=== PATIENT | female | born 1945 | race Caucasian/White ===

== ENCOUNTER → 2017-12-23 07:27 | Outpatient (CLI) | payer MEDICARE, OTHER, SELFPAY ==
[2017-12-23 11:08] LABS: ALB/GLOB Ratio 1.1 RATIO (0.9-2.4); AST(SGOT) 10 U/L (15-37); Alanine Aminotransfer ALT/SGPT 22 U/L (13-56); Albumin, Serum 3.2 g/dL (3.2-5.0); Alkaline Phosphatase 52 U/L (45-117); BUN 18 mg/dL (7-18); Calcium,Total 8.3 mg/dL (8.5-10.1); Chloride 105 mmol/L (98-107); Cholesterol 262 mg/dL (200); Creatinine, Serum 0.78 mg/dL (0.55-1.02); EST Glomerular Filtration Rate 77 mL/min (>60); Est Glom Filt Rate - Afr Amer 93 mL/min (>60); Globulin 2.9 g/dL (2.2-4.2); Glucose 160 mg/dL (74-106); Potassium 4.4 mmol/L (3.5-5.1); Protein, Total 6.1 g/dL (6.4-8.2); Sodium Level 141 mmol/L (136-145); Triglycerides 148 mg/dL
[2017-12-23 11:09] LABS: Anion Gap 10 (5-15); High Density Lipoprotein 48 mg/dL; Thyroid Stim Hormone (TSH) 0.84 uIU/mL (0.358-3.74); Very Low Density Lipoprotein 30 mg/dL (5-40)
== END ==
PROVIDERS: Family Provider Family Medicine; PCP Family Medicine; Visit Provider Family Medicine
DX: E11.9 Type 2 diabetes mellitus without complications (principal); E03.9 Hypothyroidism, unspecified
CPT/HCPCS: 36415; 80053; 80061; 84443

== ENCOUNTER → 2018-07-24 | Outpatient (CLI) | payer MEDICARE, OTHER, SELFPAY ==
[2018-06-18 11:12] VITALS: BP 134/67; PULSE 90; RESP 16; TEMP 37.1; O2SAT 97; BMI 36.6
--- NOTE | 2018-06-18 11:34 | SDCEKG_ITS ---
Test Reason : Blood Pressure : / mmHG Vent. Rate : 085 BPM Atrial Rate : 085 BPM P-R Int : 154 ms QRS Dur : 072 ms QT Int : 356 ms P-R-T Axes : 015 023 033 degrees QTc Int : 423 ms Normal sinus rhythm Normal ECG Confirmed by DOTTIE JOHNSON, HAWA ([id number]), medical editor MICHAEL ANDRADE ([id number] on 06/20/2018 10:11:35 AM Referred By: Chris Khalil Confirmed By:HAWA SINCLAIR MD
--- NOTE | 2018-06-18 12:04 | RAD_ITS ---
STUDY: X-RAY CHEST REASON FOR EXAM: Female, 72 years old. Preoperative evaluation. TECHNIQUE: PA and lateral views of the chest. COMPARISON: None. FINDINGS: The lungs are clear and expanded. There is no demonstrated pleural abnormality. Normal size heart. Normal mediastinum and tommie. Normal visualized pulmonary arteries. There is atherosclerotic calcification of the aortic arch with tortuosity. There are degenerative changes of the visualized thoracic spine. Normal visualized ribs, clavicles, and shoulders. There is no demonstrated abnormality of the visualized soft tissue structures of the upper abdomen. RAD/Chest PA and Lateral IMPRESSION: Normal x-ray examination of the chest. Electronically Signed: Dar Velazquez MD at 12:58 EST Tel [phone], Service support ,
[2018-06-18 12:10] LABS: Absolute Lymphocyte Count 0.92 X10^3/ul (0.83-4.51); Absolute Neutrophil Count 4.5 X10^3/uL (2.0-7.7); Basophil# 0.03 X10^3/uL; Basophil% 0.5 % (0-1); Eosinophil# 0.06 X10^3/uL; Hematocrit 39.8 % (37-47); Hemoglobin 13.4 g/dl (12.0-15.0); Lymphocyte # 0.92 X10^3/ul (4.0); Lymphocyte % 15.4 % (19-41); Mean Corp Hgb Conc 33.7 g/gl (32-36); Mean Corpuscular Hgb 32.1 pg (27.0-32.0); Mean Corpuscular Volume 95.2 fL (81-99); Mean Platelet Vol. 10.2 fl (6.2-12.0); Monocyte# 0.47 X10^3/uL; Monocyte% 7.9 % (0-10); Neutrophil # 4.48 X10^3/uL (2.7-7.7); Neutrophil % 74.9 % (47-70); Platelet Count 253 K/mm3 (150-450); RBC Distribution Width CV 12.1 % (11.6-14.6); RBC Distribution Width SD 41.3 fl (35.1-43.9); Red Blood Count 4.18 M/mm3 (4.2-5.4)
[2018-06-18 12:11] LABS: POSITIVE COUNT NO; POSITIVE DIFFERENTIAL NO; POSITIVE MORPHOLOGY NO
[2018-06-18 12:31] LABS: Hemoglobin A1c 8.7 % (4.2-6.3)
[2018-06-18 12:47] LABS: Anion Gap 10 (5-15); BUN 19 mg/dL (7-18); BUN/Creat Ratio 17.6 RATIO (10-20); Calcium,Total 8.6 mg/dL (8.5-10.1); Chloride 101 mmol/L (98-107); Creatinine, Serum 1.08 mg/dL (0.55-1.02); EST Glomerular Filtration Rate 53 mL/min (>60); Est Glom Filt Rate - Afr Amer 64 mL/min (>60); Estimated Creatinine Clearance 35.53 ml/min; Glucose 393 mg/dL (74-106); Potassium 4.8 mmol/L (3.5-5.1); Sodium Level 137 mmol/L (136-145); Thyroid Stim Hormone (TSH) 0.71 uIU/mL (0.358-3.74)
--- NOTE | 2018-06-18 22:54 | HP.PCM_ITS ---
History and Physical DATE OF SURGERY: 07/02/2018 SCHEDULED PROCEDURE: Left Total Knee Arthroplasty HISTORY OF PRESENT ILLNESS: This is a 72-year-old female who has had ongoing pain in her left knee for approximately 5 years. She states the pain has progressively become worse. Pain can reach as high as an 8/10. Pain is intermittent, aching, and sharp. She has increased pain going up and down stairs, walking any amount of distance. She does report clicking in both knees. Pain is located over the medial joint line. She does complain of pain bilaterally. She has difficult time with activities of daily living including shopping due to the walking. Pain does occasionally wake her at night and is positional. Patient has tried conservative measures consisting of rest, elevation, and weight loss with minimal relief. She states she has lost 10 pounds. Patient has tried heat and previous corticosteroid injection with no relief in symptoms. Corticosteroid injection was given by her primary care physician. Patient has tried home exercises with no relief in symptoms. She has tried oral medications consisting of Advil with no relief in symptoms. Patient denies previous surgery on the left knee. Patient reports having a previous Euflexxa injection with no relief in symptoms. This was done at her primary care's office approximately 4 years ago. She has tried using a knee sleeve with no relief in symptoms. Patient currently denies any chest pain, shortness of breath, fevers chills, recent infections. We are obtaining surgical clearance from patient's primary care physician. Patient states she has had an A1c testing in April which was 7.6. Patient has a medical history pertinent for hypertension and type 2 diabetes mellitus. Patient also has previous history of non-Hodgkin's lymphoma in 2002. After failing conservative measures and discussing all treatment options with Dr. Chris Khalil, the patient would like to proceed with a left total knee arthroplasty. REVIEW OF SYSTEMS: ROS: Const: Denies change in appetite, fever and weight change. CV: Denies chest pain, heart murmur and irregular heartbeat. Resp: Denies cough, pneumonia, shortness of breath, tuberculosis and wheezing. GI: Denies constipation, diarrhea, heartburn, nausea, rectal itching, bloody stools and vomiting. : Denies incontinence. Musculo: Reports pain and trouble walking, but denies leg swelling and weakness. Skin: Denies Raynaud's, history of shingles and tattoo. Neuro: Denies ambulatory dysfunction, dizziness, numbness/tingling and tremor. Psych: Denies anxiety, insomnia and stress. Oscar/Lymph: Denies anemia, bleeding/bruising tendency and past transfusion. Reviewed and updated. PAST MEDICAL HISTORY: Advance Care Plan: Other Directive, LIVING WILL Effective Date: 05/05/2018 Other Directive, POA Effective Date: 05/05/2018 PMH: Medical Problems: Arthritis, Diabetes, High Blood Pressure Cancer - (2002) NON HODGKINS LYMPHOMA Accidents: None Surgical Hx: Tubal Ligation - (1980) [facility] Thyroid - (1962) [facility] [place] Anesthesia Complications: None Assistive Devices: Glasses - READING Reviewed and updated. SOCIAL HISTORY: SH: Marital: .Occupation: Retired.Work Status: Retired.Hand Dominance: Right- handed. Personal Habits: Cigarette Use: Never Smoked Cigarettes.Smokeless Tobacco: Never Used Smokeless Tobacco.Alcohol: Denies use.Drug Use: Denies Use.Enjoy Exercising: Not Regular Program - WORK [employer]ARD WORK. Reviewed, no changes. VITALS: Ht: 61 Wt: 190lb Wt k.184 BMI: 35.9 BP: 162/68 T: 97.9 T: 36.6C ALLERGIES: Sulfa MEDICATIONS: Aspir-81 81 mg 1po qday, Kombiglyze XR 5-1000 mg 1po qday, Glipizide ER 10 mg 1po qday, Metoprolol Succinate ER 25 mg 1po qday, Metoprolol Succinate ER 50 mg 1po qday, [place] Thyroid 60 mg 1po qday, Ramipril 10 mg 2 cap by mouth every night at bedtime PRE-OP EXAM: General appearance:NORMAL Other: Eyes: Conjunctivae and lids: NORMAL Pupils: ERR Ears, Nose, Mouth, and Throat: NORMAL Other: Inspection of lips, teeth and gums: NORMAL Other: Neck: Examination of neck: no masses noted. Respiratory: Assessment of respiratory effort: NORMAL Other: Auscultation of lungs: clear to auscultation no wheezes, rhonchi or rales. Cardiovascular: Auscultation of heart: regular rate and rhythm, positive systo lic murmurs, no gallops or rubs. Exam of carotid arteries: NORMAL Other: Gastrointestinal: Exam of abdomen: soft, nontender, nondistended bowel sounds present. PHYSICAL EXAMINATION: Patient does walk with an antalgic gait. Left knee is cool to touch without erythema. Tenderness to palpation of the medial joint line. Patient does have positive effusion. Patient has varus deformity. Range of motion left knee: Lacks 15 of full extension to 95 flexion. Patient does have partial correctable varus alignment. Stable to varus valgus stress test, negative anterior/posterior drawer. Sensation intact to light touch. Neurovascularly intact. IMAGING STUDIES: X-rays of bilateral knees reveal right knee with varus alignment and medial joint space narrowing with subchondral sclerosis and osteophyte formation consistent with severe osteoarthritis. Left knee reveals varus alignment with medial joint space narrowing, subchondral sclerosis, osteophyte formation consistent with severe osteoarthritis. Most significantly in the left knee there are large posterior osteophytes with bony erosion of the medial tibial condyle. IMPRESSION: 1. Severe left knee osteoarthritis 2. Severe right knee osteoarthritis 3. Hypertension 4. Type 2 diabetes mellitus 5. History of non-Hodgkin's lymphoma 2002 PLAN: Dr. Chris Khalil did discuss and review with the patient all treatment options including surgical versus nonsurgical options. Patient does wish to proceed with the above-stated procedure. Potential risks, benefits, and complications of the procedure were discussed in detail including but not limited to , infection, nerve and blood vessel damage, persistent pain, numbness, tingling, paresthesias, blood clot, pulmonary embolism, and requirement for possible further surgery. The patient expressed full understanding and has no further questions for the doctor. Patient does agree to proceed with the above-stated procedure and has signed the surgery consent form. Patient will undergo preoperative lab work, EKG, chest x-ray. We will obtain an updated A1c due to her type 2 diabetes mellitus. I did discuss with the patient that if it is over 8.0 we will cancel her elective left total knee arthroplasty. Patient will be called with the results. Approximately 25 minutes was spent with the patient at today's visit. This dictation was created using voice recognition software. Phonetic and/or grammatical errors may exist.. ___ I have re-examined the patient. There are no clinical changes since date of exam. ___ See progress notes for changes. ___ Dictated on admission Date: Time: Signature:
--- OUTSIDE RECORDS SUMMARY | 2018-09-28 07:36 | XMS RPT_ITS ---
:1945 Author Organization OHIP Care Team Providers Name Role Phone Russ Alonso Attending Unavailable Chris Khalil Referring Unavailable Anibal Lara Attending Unavailable Anibal Lara Referring Unavailable Anibal Lara Primary Care Unavailable Chris Khalil Admitting Unavailable Chris Khalil Attending Unavailable Chris Khalil Referring Unavailable Anibal Lara Primary Care Unavailable PROBLEMS PROBLEMS DATE TYPE CONDITION / CODE ATTENDING STATUS SOURCE 07/02/2018 Unknown Z01.810 - Encounter Russ Alonso Active [place] for preprocedural [facility] examination / Repository Z01.810(ICD-10) PROCEDURES PROCEDURES No Procedure Records FoundRESULTS RESULTS 12 LEAD ELECTROCARDIOGRAM Observed: 06/20/2018 Status: F Source: DAVID 10:11 AM [facility] HOSPITAL REPOSITORY [facility] Cardiovascular Services [address] [place] [address] [place] [facility] [place] 06/18/18 1141 MR#: [id number] Acct: [id number] Name: MAIA ERICKSON Rep #: [id number] : 1945 72 From: Russ Alonso MD Attending Dr: Chris Khalil MD Status: PRE IN Ordering Dr: Chris Khalil MD Date: 06/18/18 Location: [facility] Sex: F C Admitted: Test Reason : Blood Pressure : / mmHG Vent. Rate : 085 BPM Atrial Rate : 085 BPM P-R Int : 154 ms QRS Dur : 072 ms QT Int : 356 ms P-R-T Axes : 015 023 033 degrees QTc Int : 423 ms Normal sinus rhythm Normal ECG Confirmed by RUSS ALONSO MD ([id number]), senior editor MICHAEL ANDRADE ([id number]) on 06/20/2018 10:11:35 AM Referred By: Chris Khalil Confirmed By:RUSS ALONSO MD 06/20/18 1011 Date Russ Alonso MD CC: Anibal Lara MD; Chris Khalil MD Date Dictated: 06/18/18 1141 Date Transcribed: 06/18/18 1141 Traffic Attendant: Signed HISTORY AND PHYSICAL Observed: 06/18/2018 Status: F Source: [place] EXAM 10:54 PM [facility] REPOSITORY [facility] Medical Records Department [address] [place] [address] History and Physical 06/18/18 2253 MR#: [id number] Acct: [id number] Name: MAIA ERICKSON Rep #: [id number] : 1945 72 From: Antione Gale PA-C PCP: Anibal Lara MD Status: PRE IN Y [place] [facility] [place] History and Physical DATE OF SURGERY: 07/02/2018 SCHEDULED PROCEDURE: Left Total Knee Arthroplasty HISTORY OF PRESENT ILLNESS: This is a 72-year-old female who has had ongoing pain in her left knee for approximately 5 years. She states the pain has progressively become worse. Pain can reach as high as an 8/10. Pain is intermittent, aching, and sharp. She has increased pain going up and down stairs, walking any amount of distance. She does report clicking in both knees. Pain is located over the medial joint line. She does complain of pain bilaterally. She has difficult time with activities of daily living including shopping due to the walking. Pain does occasionally wake her at night and is positional. Patient has tried conservative measures consisting of rest, elevation, and weight loss with minimal relief. She states she has lost 10 pounds. Patient has tried heat and previous corticosteroid injection with no relief in symptoms. Corticosteroid injection was given by her primary care physician. Patient has tried home exercises with no relief in symptoms. She has tried oral medications consisting of Advil with no relief in symptoms. Patient denies previous surgery on the left knee. Patient reports having a previous Euflexxa injection with no relief in symptoms. This was done at her primary care's office approximately 4 years ago. She has tried using a knee sleeve with no relief in symptoms. Patient currently denies any chest pain, shortness of breath, fevers chills, recent infections. We are obtaining surgical clearance from patient's primary care physician. Patient states she has had an A1c testing in April which was 7.6. Patient has a medical history pertinent for hypertension and type 2 diabetes mellitus. Patient also has previous history of non-Hodgkin's lymphoma in 2002. After failing conservative measures and discussing all treatment options with Dr. Chris Khalil, the patient would like to proceed with a left total knee arthroplasty. REVIEW OF SYSTEMS: ROS: Const: Denies change in appetite, fever and weight change. CV: Denies chest pain, heart murmur and irregular heartbeat. Resp: Denies cough, pneumonia, shortness of breath, tuberculosis and wheezing. GI: Denies constipation, diarrhea, heartburn, nausea, rectal itching, bloody stools and vomiting. : Denies incontinence. Musculo: Reports pain and trouble walking, but denies leg swelling and weakness. Skin: Denies Raynaud's, history of shingles and tattoo. Neuro: Denies ambulatory dysfunction, dizziness, numbness/tingling and tremor. Psych: Denies anxiety, insomnia and stress. Oscar/Lymph: Denies anemia, bleeding/bruising tendency and past transfusion. Reviewed and updated. PAST MEDICAL HISTORY: Advance Care Plan: Other Directive, LIVING WILL Effective Date: 05/05/2018 Other Directive, POA Effective Date: 05/05/2018 PMH: Medical Problems: Arthritis, Diabetes, High Blood Pressure Cancer - (2002) NON HODGKINS LYMPHOMA Accidents: None Surgical Hx: Tubal Ligation - (1980) [facility] Thyroid - (1962) [facility] DR [place] Anesthesia Complications: None Assistive Devices: Glasses - READING Reviewed and updated. SOCIAL HISTORY: SH: Marital: .Occupation: Retired.Work Status: Retired.Hand Dominance: Right-handed. Personal Habits: Cigarette Use: Never Smoked Cigarettes.Smokeless Tobacco: Never Used Smokeless Tobacco.Alcohol: Denies use.Drug Use: Denies Use.Enjoy Exercising: Not Regular Program - WORK OUTDO[employer]ARD[employer]ARD WORK. Reviewed, no changes. VITALS: Ht: 61 Wt: 190lb Wt k.184 BMI: 35.9 BP: 162/68 T: 97.9 T: 36.6C ALLERGIES: Sulfa MEDICATIONS: Aspir-81 81 mg 1po qday, Kombiglyze XR 5-1000 mg 1po qday, Glipizide ER 10 mg 1po qday, Metoprolol Succinate ER 25 mg 1po qday, Metoprolol Succinate ER 50 mg 1po qday, Trail Thyroid 60 mg 1po qday, Ramipril 10 mg 2 cap by mouth every night at bedtime PRE-OP EXAM: General appearance:NORMAL Other: Eyes: Conjunctivae and lids: NORMAL Pupils: ERR Ears, Nose, Mouth, and Throat: NORMAL Other: Inspection of lips, teeth and gums: NORMAL Other: Neck: Examination of neck: no masses noted. Respiratory: Assessment of respiratory effort: NORMAL Other: Auscultation of lungs: clear to auscultation no wheezes, rhonchi or rales. Cardiovascular: Auscultation of heart: regular rate and rhythm, positive systolic murmurs, no gallops or rubs. Exam of carotid arteries: NORMAL Other: Gastrointestinal: Exam of abdomen: soft, nontender, nondistended bowel sounds present. PHYSICAL EXAMINATION: Patient does walk with an antalgic gait. Left knee is cool to touch without erythema. Tenderness to palpation of the medial joint line. Patient does have positive effusion. Patient has varus deformity. Range of motion left knee: Lacks 15 of full extension to 95 flexion. Patient does have partial correctable varus alignment. Stable to varus valgus stress test, negative anterior/posterior drawer. Sensation intact to light touch. Neurovascularly intact. IMAGING STUDIES: X-rays of bilateral knees reveal right knee with varus alignment and medial joint space narrowing with subchondral sclerosis and osteophyte formation consistent with severe osteoarthritis. Left knee reveals varus alignment with medial joint space narrowing, subchondral sclerosis, osteophyte formation consistent with severe osteoarthritis. Most significantly in the left knee there are large posterior osteophytes with bony erosion of the medial tibial condyle. IMPRESSION: 1. Severe left knee osteoarthritis 2. Severe right knee osteoarthritis 3. Hypertension 4. Type 2 diabetes mellitus 5. History of non-Hodgkin's lymphoma 2002 PLAN: Dr. Chris Khalil did discuss and review with the patient all treatment options including surgical versus nonsurgical options. Patient does wish to proceed with the above-stated procedure. Potential risks, benefits, and complications of the procedure were discussed in detail including but not limited to , infection, nerve and blood vessel damage, persistent pain, numbness, tingling, paresthesias, blood clot, pulmonary embolism, and requirement for possible further surgery. The patient expressed full understanding and has no further questions for the doctor. Patient does agree to proceed with the above-stated procedure and has signed the surgery consent form. Patient will undergo preoperative lab work, EKG, chest x-ray. We will obtain an updated A1c due to her type 2 diabetes mellitus. I did discuss with the patient that if it is over 8.0 we will cancel her elective left total knee arthroplasty. Patient will be called with the results. Approximately 25 minutes was spent with the patient at today's visit. This dictation was created using voice recognition software. Phonetic and/or grammatical errors may exist.. ___ I have re-examined the patient. There are no clinical changes since date of exam. ___ See progress notes for changes. ___ Dictated on admission Date: Time: Signature: 06/18/18 2184 <Electronically signed by Antione Gale PA-C> Date Antione Gale PA-C Cosigner Signature: Date (if applicable) CC: Anibal Lara MD; Antione DE LEON Signed CBC W/DIFF, AUTOMATED Collected: 06/18/2018 Status: F Source: DAVID 11:55 AM [facility] REPOSITORY TYPE CODE TESTS RESULT OUT OF RANGE REFERENCE UNITS LAB L100.1000 4.4-11.0 K/mm3 Normal WBC 6.0 LAB L100.1200 4.2-5.4 M/mm3 Low RBC 4.18 LAB L100.1300 12.0-15.0 g/dl Normal HGB 13.4 LAB L100.1400 37-47 % Normal HCT 39.8 LAB L100.1500 81-99 fL Normal MCV 95.2 LAB L100.1600 27.0-32.0 pg High MCH 32.1 LAB L100.1700 32-36 g/gl Normal MCHC 33.7 LAB L100.1810 11.6-14.6 % Normal RDW CV 12.1 LAB L100.1820 35.1-43.9 fl Normal RDW SD 41.3 LAB L100.1900 150-450 K/mm3 Normal PLT 253 LAB L100.2000 6.2-12.0 fl Normal MPV 10.2 LAB L100.2100 47-70 % High NEUT% 74.9 LAB L100.2200 19-41 % Low LY% 15.4 LAB L100.2300 0-10 % Normal MONO% 7.9 LAB L100.2400 0-5 % Normal EO% 1.0 LAB L100.2500 0-1 % Normal BASO% 0.5 LAB L100.2550 0.0-0.9 % Normal IM GRAN % 0.300 Result Comment: IG% - Immature Granulocytes (promyelocytes, myelocytes and metamyelocytes) > 1% indicates that a LEFT SHIFT is Present. LAB L100.2620 2.0-7.7 X10 3/uL Normal Absolute Neut 4.5 LAB L100.2720 0.83-4.51 X10 3/ul Normal Absolute Lymph 0.92 Performed By: #### L100.0100 #### [facility] [address] [place], [address] HEMOGLOBIN A1C Collected: 06/18/2018 Status: F Source: DAVID 11:55 AM [facility] REPOSITORY TYPE CODE TESTS RESULT OUT OF RANGE REFERENCE UNITS LAB L501.9985 4.2-6.3 % High HGB A1C 8.7 Performed By: #### L501.9985 #### [facility] [address] [facility] [place], [address] BASIC METABOLIC Collected: 06/18/2018 Status: F Source: [place] PROFILE (BMP) 11:55 AM [facility] REPOSITORY TYPE CODE TESTS RESULT OUT OF RANGE REFERENCE UNITS LAB L501.0100 74-106 mg/dL High GLU 393 Result Comment: Glucose result greater than or equal to 200 mg/dL suggests DIABETES MELLITUS per A.D.A. criteria. Please note revised GLUCOSE reference range effective 2017. LAB L501.1000 7-18 mg/dL High BUN 19 LAB L501.1100 0.55-1.02 mg/dL High CREAT,SERUM 1.08 Result Comment: The validity of the calculated GFR AND GFRAA in patients over 70 years has not been determined. Clinical correlation is essential. LAB L501.1110 >60 mL/min Low EST GFR 53 Result Comment: Non- GFR Calc LAB L501.1115 >60 mL/min Normal EST GFR - AA 64 Result Comment: GFR Calc LAB L501.1255 ml/min Normal Estimated CRCL 35.53 LAB L501.1300 10-20 RATIO Normal BUN/CRE 17.6 LAB L501.2200 8.5-10 mg/dL Normal .1 CA 8.6 LAB L501.5300 136-14 mmol/L Normal 5 NA 137 LAB L501.5600 3.5-5. mmol/L Normal 1 K 4.8 LAB L501.5900 98-107 mmol/L Normal CL 101 LAB L501.6100 21.0-3 mmol/L Normal 2.0 CO2 26.0 LAB L501.6200 5-15 Normal GAP 10 Performed By: #### L500.2500, L501.9520 #### [facility] [address] [place], [address] THYROID STIM HORMONE Collected: 06/18/2018 Status: F Source: [place] (TSH) 11:55 AM [facility] REPOSITORY TYPE CODE TESTS RESULT OUT OF RANGE REFERENCE UNITS LAB L501.9520 0.358-3.74 uIU/mL Normal TSH 0.71 Performed By: #### L500.2500, L501.9520 #### [facility] [address] [place], [address] Observed: 06/18/2018 Status: F Source: [place] MRSA/SAID SCREEN 11:55 AM [facility] REPOSITORY MRSA/SAID SCRN S. AUREUS S. aureus Positive MRSA MRSA Negative Performed By: #### M100.651 #### [facility] [address] [place], [place], [address] CHEST PA AND LATERAL Observed: 06/18/2018 Status: F Source: [place] 11:38 AM [facility] REPOSITORY [facility] Imaging Services [address] [place] [address] Chest PA and Lateral MR#: [id number] Acct: [id number] Name: MAIA ERICKSON Rep #: [id number] : 1945 F 72 From: Dar Velazquez MD PCP: Anibal Lara MD Status: PRE IN Study: Chest PA and Lateral Date of Exam: 06/18/18 Exam# [id number] Ordering Dr: Chris Khalil MD STUDY: X-RAY CHEST REASON FOR EXAM: Female, 72 years old. Preoperative evaluation. TECHNIQUE: PA and lateral views of the chest. COMPARISON: None. FINDINGS: The lungs are clear and expanded. There is no demonstrated pleural abnormality. Normal size heart. Normal mediastinum and tommie. Normal visualized pulmonary arteries. There is atherosclerotic calcification of the aortic arch with tortuosity. There are degenerative changes of the visualized thoracic spine. Normal visualized ribs, clavicles, and shoulders. There is no demonstrated abnormality of the visualized soft tissue structures of the upper abdomen. RAD/Chest PA and Lateral IMPRESSION: Normal x-ray examination of the chest. Electronically Signed: Dar Velazquez MD at 12:58 EST Tel [phone], Service support , CC: Anibal Lara MD; Chris Khalil MD Traffic Attendant: Signed COMPREHENSIVE METABOLIC Collected: 12/23/2017 Status: F Source: DAVID LINARES 7:52 AM [facility] REPOSITORY Order Comment: Order Date: 09/25/17 Order Info: [id number] - CMP Order Info: [id number] - LIPID Order Info: [id number] - TSH TYPE CODE TESTS RESULT OUT OF RANGE REFERENCE UNITS LAB L501.0100 74-106 mg/dL High GLU 160 Result Comment: Fasting Glucose result greater than or equal to 126 mg/dL suggests DIABETES MELLITUS per A.D.A. criteria. Please note revised GLUCOSE reference range effective 2017. LAB L501.1000 7-18 mg/dL Normal BUN 18 LAB L501.1100 0.55-1.02 mg/dL Normal CREAT,SERUM 0.78 Result Comment: The validity of the calculated GFR AND GFRAA in patients over 70 years has not been determined. Clinical correlation is essential. LAB L501.1110 >60 mL/min Normal EST GFR 77 Result Comment: Non- GFR Calc LAB L501.1115 >60 mL/min Normal EST GFR - AA 93 Result Comment: GFR Calc LAB L501.1300 10-20 RATIO High BUN/CRE 23.0 LAB L501.1500 6.4-8.2 g/dL Low T PROT 6.1 LAB L501.1800 3.2-5.0 g/dL Normal ALB 3.2 LAB L501.1950 2.2-4.2 g/dL Normal GLOB 2.9 LAB L501.2000 0.9-2.4 RATIO Normal A/G 1.1 LAB L501.2200 8.5-10.1 mg/dL Low CA 8.3 LAB L501.4100 15-37 U/L Low AST 10 LAB L501.4305 45-117 U/L Normal ALK P 52 LAB L501.4405 13-56 U/L Normal ALT 22 LAB L501.4600 0.20-1.00 mg/dL T Normal BILI 0.40 LAB L501.5300 136-145 mmol/L NA Normal 141 LAB L501.5600 3.5-5.1 mmol/L K Normal 4.4 LAB L501.5900 98-107 mmol/L CL Normal 105 LAB L501.6100 21.0-32.0 mmol/L Normal CO2 26.0 LAB L501.6200 5-15 Normal GAP 10 Performed By: #### L500.4050, L500.4100, L501.9520 #### [facility] [address] [place], [address] LIPID PROFILE Collected: 12/23/2017 Status: F Source: [place] 7:52 AM [facility] REPOSITORY Order Comment: Order Date: 09/25/17 Order Info: [id number] - CMP Order Info: [id number] - LIPID Order Info: [id number] - TSH TYPE CODE TESTS RESULT OUT OF RANGE REFERENCE UNITS LAB L501.4900 200 mg/dL High CHOL 262 Result Comment: <200 mg/dL Desirable 200-240 mg/dL Borderline >240 mg/dL High Risk LAB L501.5000 mg/dL Normal TRIG 148 Result Comment: The drugs N-Acetylcysteine and Metamizole may falsely depress this assay. Serum Triglycerides Reference Interval Normal <150 mg/dL Borderline high 150 - 199 mg/dL High 200 - 499 mg/dL Very High > or = 500 mg/dL LAB L501.6400 mg/dL Normal HDL 48 Result Comment: The drugs N-Acetylcysteine and Metamizole may falsely depress this assay. Reference Range HDL <40 mg/dL Low HDL Cholesterol HDL >or= 60 mg/dL High HDL Cholesterol LAB L501.6500 0-130 mg/dL High LDL 184 LAB L501.6600 5-40 mg/dL Normal VLDL 30 Performed By: #### L500.4050, L500.4100, L501.9520 #### [facility] [address] [place], [address] THYROID STIM HORMONE Collected: 12/23/2017 Status: F Source: DAVID (TSH) 7:52 AM [facility] REPOSITORY Order Comment: Order Date: 09/25/17 Order Info: [id number] - CMP Order Info: [id number] - LIPID Order Info: [id number] - TSH TYPE CODE TESTS RESULT OUT OF RANGE REFERENCE UNITS LAB L501.9520 0.358-3.74 uIU/mL Normal TSH 0.84 Performed By: #### L500.4050, L500.4100, L501.9520 #### [facility] [address] [place], [address] ALLERGIES ALLERGIES DATE TYPE / CODE NAME / CODE REACTION SEVERITY SOURCE 06/18/2018 Drug Sulfa Unknown Unknown [facility] Allergy/4160 (Sulfonamide Hospital 42525(SNOMED Antibiotics)/ Repository CT) [id number](RX NORM) ENCOUNTERS ENCOUNTERS ADMIT/DISCHARGE ACCOUNT ADMITTING ENCOUNTER LOCATION SOURCE NUMBER CLASS 07/24/2018 [id number] Remi, Ambulatory [place] David 4 [facility] ing:SD Repository 06/18/2018 [id number] Ambulatory BMSBuilding:W David 9 [facility] Repository 12/23/2017 [id number] Ambulatory [place] David 3 [facility] PAYERS PAYERS ENCOUNTER GUARANTOR PAYER SUBSCRIBER SOURCE 07/24/2018 MAIA Zarate Primary MAIA [id number] Insurance:MEDICARE SNYDERDOB: [facility] PART A BPolicy [id number] Number: Repository [id number]: [id number] Date:2018-05-13 () 07/24/2018 Secondary MAIA Hernandez Insurance:BANKERS SNYDERDOB[facility] [id number] Hospital Number: Repository [id number] Date:8676-75-28[address], [place] [address]ZS: 07/24/2018 Tertiary NOT GIVENUNK [place] Insurance:SELF PAY [facility]: Effective Repository Date:2018-05-13 06/18/2018 MAIA Zarate Primary MAIA M David [id number] Insurance:MEDICARE SNYDERDOB: [facility] BOX PART A [facility] [id number] Number: Repository [phone]: [id number] Date:2018-05-13 () 06/18/2018 Secondary MAIA M David Insurance:BANKERS SNYDERDOB: [facility]1983icy [id number] Hospital Number: Repository [id number] Date:5199-44-23[address], [place] [address]AQ: 06/18/2018 Tertiary NOT GIVENUNK David Insurance:SELF PAY [facility] Number: Effective Repository Date:2018-06-18 12/23/2017 Maia MunsonerPo Primary Maia Zarate [place] Box Insurance:MEDICARE SnyderDOB: [address] PART A [facility] [id number] Hospital [id number]: Number: Repository [id number] () Date:2017-12-23 12/23/2017 Secondary Maia Zarate David Insurance:BANKERS SnyderDOB: [facility]icy [id number] Hospital Number: Repository [id number] Date:7100-20-53[address], [place] [address]JA: 12/23/2017 Tertiary NOT GIVENUNK [place] Insurance:SELF PAY [facility] Hospital Number: Effective Repository Date:2017-12-23
== END | disposition home or self-care (01) ==
LOC: SDC 13:23
PROVIDERS: Anesthesiology; Family Provider Family Medicine; PCP Family Medicine; Referring Provider Specialist; Visit Provider Specialist
DX: Z01.818 Encounter for other preprocedural examination (principal); Z79.899 Other long term (current) drug therapy
CPT/HCPCS: 71046; 80048; 83036; 84443; 85025; 87077; 87081; 93005

== ENCOUNTER → 2018-10-13 | Outpatient (CLI) | payer MEDICARE, OTHER, SELFPAY ==
[2018-06-18 11:12] VITALS: BMI 36.6
[2018-10-13 10:38] LABS: ALB/GLOB Ratio 1.2 RATIO (0.9-2.4); AST(SGOT) 15 U/L (15-37); Alanine Aminotransfer ALT/SGPT 25 U/L (13-56); Albumin, Serum 3.3 g/dL (3.2-5.0); Alkaline Phosphatase 49 U/L (45-117); Anion Gap 7 (5-15); BUN 18 mg/dL (7-18); Calcium,Total 8.3 mg/dL (8.5-10.1); Chloride 105 mmol/L (98-107); Creatinine, Serum 0.75 mg/dL (0.55-1.02); EST Glomerular Filtration Rate 80 mL/min (>60); Est Glom Filt Rate - Afr Amer 97 mL/min (>60); Globulin 2.8 g/dL (2.2-4.2); Glucose 157 mg/dL (74-106); Potassium 4.4 mmol/L (3.5-5.1); Protein, Total 6.1 g/dL (6.4-8.2); Sodium Level 141 mmol/L (136-145); Thyroid Stim Hormone (TSH) 0.89 uIU/mL (0.358-3.74)
== END | disposition home or self-care (01) ==
LOC: MTLAB 07:49
PROVIDERS: Family Provider Family Medicine; PCP Family Medicine; Referring Provider Family Medicine; Visit Provider Family Medicine
DX: E11.9 Type 2 diabetes mellitus without complications (principal)
CPT/HCPCS: 36415; 80053; 84443

== ENCOUNTER → 2019-01-29 | Outpatient (CLI) | payer MEDICARE, OTHER, SELFPAY ==
[2018-06-18 11:12] VITALS: BMI 36.6
--- NOTE | 2019-01-29 14:45 | ECHOD_ITS ---
Reason For Study: MURMUR Procedure This was a 2D Doppler, Color Flow transthoracic echocardiogram. The study was technically difficult. Due to body habitus. Exam performed in department. Left Ventricle Normal size and thickness. The estimated ejection fraction is 55 %. Normal diastology for age. No regional wall motion abnormalities noted. Right Ventricle Normal RV size. Normal systolic function. Atria Normal left atrium. Normal right atrium. No doppler evidence for ASD. Mitral Valve There is mild to moderate mitral annular calcification. There is no mitral valve stenosis. No mitral valve insufficiency. Tricuspid Valve There is no tricuspid stenosis. Trivial tricuspid valve insufficiency. Unable to estimate RV systolic pressure due to insufficient tricuspid regurgitant envelope. Aortic Valve aortic sclerosis. Mild aortic stenosis. No aortic valve insufficiency. Pulmonic Valve There is no pulmonic valvular stenosis. Trivial pulmonic valve insufficiency. Great Vessels Normal aortic root. Pericardium/Pleural No pericardial effusion. MMode/2D Measurements & Calculations LVIDd: 3.9 cm IVSd: 1.1 cm LVOT diam: 2.0 cm LVIDs: 2.7 cm LVPWd: 1.2 cm LVOT area: 3.2 cm2 RVDd: 3.3 cm FS: 29.9 % Ao root diam: 2.8 cm LAV(MOD-bp): 45.2 ml LA A4 area: 16.8 cm2 LAV(MOD-bp) Indexed: 24.6 ml/m2 LAV(MOD-sp2): 42.8 ml LAV(MOD-sp4): 45.9 ml LA dimension(2D): 3.7 cm RA A4 area: 15.5 cm2 Time Measurements MV dec time: 0.27 sec Doppler Measurements & Calculations MV E max talon: 81.2 cm/sec Lat Peak E' Talon: 7.1 cm/sec Med Peak E' Talon: 5.2 cm/sec MV A max talon: 116.8 cm/sec E/E' lat: 11.5 E/E' med: 15.5 MV E/A: 0.70 Ao V2 max: 227.6 cm/sec LV V1 max: 101.7 cm/sec SV(LVOT): 74.4 ml Ao max P.7 mmHg LV V1 max P.1 mmHg Ao V2 mean: 150.0 cm/sec LV V1 mean P.5 mmHg Ao mean P.1 mmHg LV V1 mean: 75.4 cm/sec Ao V2 VTI: 42.2 cm LV V1 VTI: 23.4 cm LENA(I,D): 1.8 cm2 LENA(V,D): 1.4 cm2 PA V2 max: 88.2 cm/sec TR max talon: 233.0 cm/sec TR max P.7 mmHg Interpretation Summary The estimated ejection fraction is 55 %. Normal diastology for age. Trivial tricuspid valve insufficiency. aortic sclerosis Mild aortic stenosis. Ordering Physician: Kentrell Lara Referring Physician: Kentrell Lara Performed By: Gisella Campos, ISMAEL, RVT
== END | disposition home or self-care (01) ==
LOC: CVS 14:44
PROVIDERS: Family Provider Family Medicine; PCP Family Medicine; Referring Provider Family Medicine; Visit Provider Family Medicine
DX: R01.1 Cardiac murmur, unspecified (principal)
CPT/HCPCS: 93306

== ENCOUNTER → 2019-05-01 07:41 | Outpatient (CLI) | payer MEDICARE, OTHER, SELFPAY ==
[2018-06-18 11:12] VITALS: BMI 36.6
[2019-05-01 10:29] LABS: ALB/GLOB Ratio 1.3 RATIO (0.9-2.4); AST(SGOT) 10 U/L (15-37); Alanine Aminotransfer ALT/SGPT 22 U/L (13-56); Albumin, Serum 3.4 g/dL (3.2-5.0); Alkaline Phosphatase 51 U/L (45-117); Anion Gap 7 (5-15); BUN 19 mg/dL (7-18); BUN/Creat Ratio 23.3 RATIO (10-20); Calcium,Total 8.7 mg/dL (8.5-10.1); Chloride 105 mmol/L (98-107); Cholesterol 269 mg/dL (200); Creatinine, Serum 0.82 mg/dL (0.55-1.02); EST Glomerular Filtration Rate 73 mL/min (>60); Est Glom Filt Rate - Afr Amer 88 mL/min (>60); Globulin 2.6 g/dL (2.2-4.2); Glucose 110 mg/dL (74-106); High Density Lipoprotein 52 mg/dL; Potassium 4.4 mmol/L (3.5-5.1); Sodium Level 140 mmol/L (136-145); Thyroid Stim Hormone (TSH) 1.13 uIU/mL (0.358-3.74); Triglycerides 152 mg/dL; Very Low Density Lipoprotein 30 mg/dL (5-40)
== END ==
PROVIDERS: Family Provider Family Medicine; PCP Family Medicine; Referring Provider Family Medicine; Visit Provider Family Medicine
DX: E03.9 Hypothyroidism, unspecified (principal); E11.9 Type 2 diabetes mellitus without complications
CPT/HCPCS: 36415; 80053; 80061; 84443

== ENCOUNTER → 2019-06-10 13:15 | Outpatient (CLI) | payer MEDICARE, OTHER, SELFPAY ==
[2019-06-10 13:00] VITALS: BMI 36.6
--- NOTE | 2019-06-10 13:16 | RAD_ITS ---
STUDY: X-RAY - RIGHT KNEE REASON FOR EXAM: Female, 73 years old. Chronic pain TECHNIQUE: 4 view(s) of the knee. COMPARISON: None. FINDINGS: Normal visualized distal femur. Normal visualized proximal tibia and fibula. Normal proximal tibiofibular articulation. There is no demonstrated fracture. There is severe degenerative arthrosis of the medial femorotibial compartment with severe joint space narrowing. There is mild degenerative arthrosis of the lateral femorotibial compartment. There is moderate degenerative arthrosis of the patellofemoral articulation. Negative for substantial joint effusion. Vascular calcifications. RAD/Knee 4 or More Views IMPRESSION: Severe degenerative arthrosis of the medial compartment of the knee. Mild degenerative changes of the lateral compartment. Moderate degenerative changes of the patellofemoral compartment. Negative for substantial joint effusion. Electronically Signed: Kayleigh Khalil MD at 21:48 EST , Service support ,
--- NOTE | 2019-06-10 13:16 | RAD_ITS ---
STUDY: X-RAY - LEFT KNEE REASON FOR EXAM: Female, 73 years old. Chronic left knee pain. TECHNIQUE: 4 view(s) of the knee. COMPARISON: None. FINDINGS: Normal visualized distal femur. Normal visualized proximal tibia and fibula. Normal proximal tibiofibular articulation. There is severe degenerative arthrosis of the medial femorotibial compartment with severe joint space narrowing. There is moderate degenerative arthrosis of the lateral femorotibial compartment with moderate joint space narrowing. There is moderate degenerative arthrosis of the patellofemoral articulation. Vascular calcifications. RAD/Knee 4 or More Views IMPRESSION: Normally located knee without fracture, osteolytic or blastic bone lesion. Severe degenerative arthrosis of the medial compartment with moderate degenerative arthrosis of the lateral and patellofemoral compartment. Electronically Signed: Kayleigh Khalil MD at 16:25 EST , Service support ,
== END ==
PROVIDERS: Family Provider Family Medicine; PCP Family Medicine; Referring Provider Orthopaedic Surgery; Visit Provider Orthopaedic Surgery
DX: M25.562 Pain in left knee (principal); M25.561 Pain in right knee
CPT/HCPCS: 73564

== ENCOUNTER 2019-07-28 09:24 | Observation (INO) | payer MEDICARE, OTHER, SELFPAY ==
[2019-06-10 13:00] VITALS: BMI 36.6
[2019-07-15 07:59] VITALS: BMI 34.0
[2019-07-21 10:09] VITALS: BP 146/72; PULSE 93; RESP 17; TEMP 36.3; O2SAT 97; BMI 34.7
--- NOTE | 2019-07-21 11:03 | SDCEKG_ITS ---
Test Reason : Blood Pressure : / mmHG Vent. Rate : 088 BPM Atrial Rate : 088 BPM P-R Int : 162 ms QRS Dur : 066 ms QT Int : 356 ms P-R-T Axes : 015 024 032 degrees QTc Int : 430 ms Normal sinus rhythm Septal infarct , age undetermined Abnormal ECG Confirmed by ROBERT QUIÑONES ([id number]), editor trade journal MOHAMUD TONY ([id number]) on 07/23/2019 8:45:13 AM Referred By: Killian Ogden Confirmed By:ROBERT QUIÑONES
[2019-07-28] VITALS (13 sets, daily range): BP systolic 103–185; BP diastolic 58–84; PULSE 41–99; RESP 3–18; TEMP 36.1–36.9; O2SAT 95–100; BMI 34.7; BMI 36.6
[2019-07-28 06:01] LABS: Bedside Glucose 139 mg/dL (70-110)
[2019-07-28] MEDS: Lactated Ringers 1,000 ML 100 ML IV (06:20)
[2019-07-28] MEDS: Magnesium Sulfate 4gm/100mL 4 GM/100 ML IV.SOLN. IV (06:20)
[2019-07-28] MEDS: Celecoxib 200 MG Capsule 400 MG PO (06:21)
[2019-07-28] MEDS: Gabapentin 600 MG Tablet PO (06:22)
[2019-07-28] MEDS: Acetaminophen 500 MG Tablet 1000 MG PO ×3 (06:22→21:42)
[2019-07-28] MEDS: Scopolamine 1mg/72hr Patch 1 PATCH TRANSDERM. (06:23)
[2019-07-28] MEDS: Lactated Ringers 1,000 ML 125 ML IV ×2 (07:00→12:40)
--- NOTE | 2019-07-28 07:20 | HP.PCM_ITS ---
History and Physical Date of Admission: 07/28/19 Intake Intake Visit Reasons: left knee Is patient in pain?: Yes Allergies Sulfa (Sulfonamide Antibiotics) Allergy (Verified 07/15/19 12:00) Unknown [facility] Medical History (Updated 06/10/19 @ 13:17 by Lucila Baum) Diabetes mellitus (Acute) HTN (hypertension) (Chronic) Social History (Updated 07/15/19 @ 12:58 by Killian Ogden DO) Smoking Status: Never smoker HPI left knee: Details: Parts of this documentation were recorded by a scribe, this documentation accurately reflects the service provided and the decisions made by me, Killian Ogden DO 07/15/19 0759. MAIA ERICKSON is a 74 year old F here today for left knee iovera. Patient states that she continues to have left knee achiness and stiffness. She has increased pain with stairs and ambulates stairs slowly. Denies numbness, tingling or other associated symptoms. ROS Const Denies headache(s) ENT Denies headache(s) Musc Reports joint pain, Reports limited joint movement, Reports stiffness Skin/Breast Reports system reviewed and no additional complaints, except as docu Neuro Yes system reviewed and no additional complaints, except as docu, No headache(s) Office Procedures Iovera Details:: Preoperative diagnosis : left knee OA Postoperative diagnosis: Same Procedure: Cryotherapy with Iovera device to anterior femoral cutaneous nerve and 2 branches of the infrapatellar saphenous nerve III nerves in total Description of procedure: Patient was brought back to the procedure room the operative extremity was identified by both patient and physician. The PIP flexion crease was measured to the midpoint of the patella and this distance was divided in 3 resulting in 10 cm location proximal to the midpoint of the patella. This line was extended medial and lateral to the extent of the edges of the patella. This was our treatment line for the anterior femoral cutaneous nerve. A second treatment line was made 5 cm medial to the inferior pole of the patella and 5 cm distally. The leg was prepped with alcohol and Betadine. Lidocaine with epi was used along the treatment lines. Using the Iovera device treatment lines were treated with 1 minute cycles. Reproduction of paresthesias was monitored in the area of nerve distribution. Once all 3 nerves were treated across the 2 treatment lines patient was cleaned and a light dressing with 4 x 4 and Bismark wrap was applied. Patient tolerated the procedure without complication. Assessment & Plan Problems 1. Primary osteoarthritis of left knee M17.12 Plan Risks, benefits and alternatives of surgery reviewed including risk of bleeding, infection, nerve, artery and/or tissue damage continued pain or symptoms and expected post-operative course. Follow up for 2 week post op appointment or sooner if pain, swelling, numbness or associated symptoms, or concerns develop. All questions answered. Patient in agreement of plan. Orders Orders: Carmen Patel M25.569 Coding Level of Care Code Attention Lead Performance Support Analyst Diagnoses Primary osteoarthritis of left knee M17.12 ??Osteoarthritis type: primary I have re-examined the patient. There are no clinical changes since date of exam
[2019-07-28] MEDS: Cefazolin 2 GM in 0.9% Normal Saline 100 ML IV (07:41)
[2019-07-28] MEDS: dexAMETHasone 10 MG/ML Vial IV (08:35)
[2019-07-28] MEDS: Betamethasone/Betamethasone 30 MG/5 ML Vial (08:52)
[2019-07-28] MEDS: Bupivacaine 0.5% PF 10 ML VIAL (08:52)
[2019-07-28] MEDS: 0.9% Normal Saline (Pres. free 10 ML Vial (08:52)
[2019-07-28] MEDS: Epinephrine (1 mg/ml) 1 MG/ML VIAL (08:52)
--- NOTE | 2019-07-28 09:29 | PCM.OPRPT ---
Report of Operation Date of Procedure: 07/28/19 Description of Surgical Findings:: Preoperative diagnosis: Left knee DJD Postoperative diagnosis: Same Procedure: Left total knee arthroplasty Implant: [place] triathlon cemented femoral component size 4, cemented tibial baseplate size 4, cemented asymmetric patella size 32, polyethylene X3 size 9 CS Anesthesia: Spinal with adductor canal block Tourniquet time: 70 minutes at 300 mmHg Complications: None Condition: Stable to PACU Estimated blood loss: 25 cc Indication for procedure: This is a 74-year-old female with long standing degenerative joint disease of the knee who has failed conservative treatment and wished to proceed with elective total knee arthroplasty. Risk benefits and alternatives were reviewed including; risk of bleeding, infection, nerve artery and tissue damage, continued pain, postoperative stiffness, venous thromboembolism, need for postoperative rehabilitation, mechanical feel to the knee, and expected postoperative course. Procedure: The patient was met in the preoperative holding area. The operative extremity was identified by both patient and physician and was marked. Patient was met by anesthesia. An adductor canal block was placed by anesthesia postoperatively the patient was brought back to the operating room on a wheeled cart and transferred to the operating table in the supine position. Anesthesia was started. A well-padded tourniquet was placed on the operative extremity. The patient was prepped and draped in the usual sterile fashion. A timeout was called to ensure the proper patient procedure and extremity were being contemplated. An Esmarch was used to exsanguinate the extremity. The tourniquet was inflated. A 10 blade scalpel was used to make a midline incision down through the skin and subcutaneous tissue. Skin retractors placed. Bovie was used to perform meticulous hemostasis. full-thickness flaps were elevated medial and lateral along the joint capsule. A deep blade scalpel was used to perform a medial parapatellar arthrotomy. The knee was brought to full extension. A Bovie was used to release the soft tissues off the most proximal aspect of the medial tibial plateau a three-quarter inch curved osteotome was also used for this process. The infrapatellar fat pad was excised. The fat pad was excised partially anterior lateral portion the anterior medial was elevated from the femur. the patella was everted. The knee was brought into flexion. An intramedullary drill was used followed by flexible intramedullary guide adriane. The distal femoral cutting block was placed and set to remove 10 mm of bone and 5 degrees of valgus. The block was secured with pins and an oscillating saw was used to complete the distal femoral cut. During this, and all bony cuts retractors were used to protect the collateral ligaments. At this point a femoral sizer was used to measure the AP dimension of the femur. The sizer block was pinned parallel to the epicondylar access for external rotation. The sizing block was removed and the appropriately sized 4-in-1 cutting block was placed over the previously made pinholes. It was checked with an claritza wing and the block was secured with pins. An oscillating saw was used to complete the anterior cut followed by the posterior cut followed by the posterior chamfer cut followed by the anterior chamfer cut. The block was removed as well as the fragments. A ronguer was used to remove excess osteophytes. The medial and lateral meniscus were excised as well as the ACL. At this point a PCL retractor was placed and an intramedullary drill was passed down the tibial canal followed by a solid intramedullary guide adriane. The tibial cutting block was attached and set to remove 9 mm of bone from the high side. This was checked with an external alignment drop adriane for slope and tilt. It was pinned into place. An oscillating saw was used to complete the tibial plateau cut and the block was removed. A large osteotome was used to elevate the fragment and a Micky and a Bovie were used to free the fragment from the surrounding soft tissue. A rongeur was once again used to remove osteophytes a lamina e learning manager was used to evaluate the posterior capsular structures. A three-quarter inch curved osteotome was used to remove posterior osteophytes. A spacer block was inserted in both extension and flexion to ensure adequate spacing. Trials were inserted at this point the knee was balanced however there was a lack of full extension still so we reinserted the femoral cutting block and removed an additional 4 mm and recut the chamfers cuts we then re-trialed and achieved full extension and flexion were achieved in varus and valgus stability throughout range of motion were seen, balancing techniques were performed. At this point the attention was turned towards the patella. A caliper was used to ensure sufficient bone stock to remove 10 mm of bone. A reamer was used to perform this task. Lug holes were made for the appropriate-sized patella. The patella trial was inserted and there was good patellar tracking with knee range of motion. The tibial baseplate was allowed to float into rotation and was marked on the tibial plateau with a Bovie. Lug holes were made in the femur and trials were removed. The tibial baseplate was then sized and its preparation was completed with a fin punch. The knee was thoroughly irrigated. A posterior capsular injection was performed with our standard cocktail. The knee was brought into flexion and irrigated again. The tibial baseplate was cemented. Excess cement was removed with curettes. The polyethylene component was inserted. The femoral component was cemented. The knee was brought into full extension and placed on a bump. The patellar component was cemented. At this point a Betadine rinse was placed and thoroughly irrigated after a few minutes. This was followed by an Iricept rinse which was allowed to sit for 1 minute and then thoroughly irrigated.At this point all gloves were changed. The knee was thoroughly irrigated the joint capsule was closed with #1 Ethibond. Tourniquet was let down followed by 0 Vicryl and 2-0 Vicryl in the subcutaneous tissues. followed by juli in the skin. Dressing was applied in the form of Mepilex silver dressing web roll and an Bismark wrap from the foot to the groin. The patient tolerated the procedure well, all counts were correct patient was brought back to the PACU in stable condition.
--- NOTE | 2019-07-28 10:00 | RAD_ITS ---
STUDY: X-RAY - LEFT KNEE REASON FOR EXAM: Female, 74 years old. POST OP TECHNIQUE: 2 view(s) of the knee. COMPARISON: None. FINDINGS: Normal visualized distal femur. Normal visualized proximal tibia and fibula. Normal proximal tibiofibular articulation. The patient is status post total knee replacement. There is good alignment. Postoperative soft tissue changes. RAD/Knee 1 or 2 Views IMPRESSION: Status post total knee replacement. There is good alignment. Postoperative soft tissue changes. Electronically Signed: Dar Velazquez, at 10:51 EST , Service support ,
[2019-07-28 10:06] LABS: Bedside Glucose 128 mg/dL (70-110)
[2019-07-28] MEDS: Cefazolin 1 GM/50 ML BAG IV ×2 (10:25→17:31)
[2019-07-28] MEDS: Senna/Docusate Sodium 1 Tablet 2 TABLET PO ×2 (12:41→21:42)
[2019-07-28] MEDS: Glucerna Shake 120 ML LIQUID PO (17:30)
[2019-07-29] MEDS: Cefazolin 1 GM/50 ML BAG IV ×2 (02:16→09:44)
[2019-07-29 02:30] VITALS: BP 119/68; PULSE 87; RESP 18; TEMP 36.6; O2SAT 94
[2019-07-29] MEDS: Acetaminophen 500 MG Tablet 1000 MG PO ×2 (05:37→13:50)
[2019-07-29] MEDS: APIXABAN 2.5 MG TABLET PO (06:00)
[2019-07-29 06:09] LABS: Hematocrit 40.3 % (37-47); Hemoglobin 13.5 g/dL (12.0-15.0); Mean Corp Hgb Conc 33.5 g/dL (32-36); Mean Corpuscular Hgb 31.5 pg (27.0-32.0); Mean Corpuscular Volume 93.9 fL (81-99); Mean Platelet Vol. 10.1 fl (6.2-12.0); Platelet Count 254 K/mm3 (150-450); RBC Distribution Width CV 12.3 % (11.6-14.6); RBC Distribution Width SD 42.5 fl (35.1-43.9); Red Blood Count 4.29 M/mm3 (4.2-5.4); White Blood Count 10.3 K/mm3 (4.4-11.0)
[2019-07-29 06:42] LABS: Anion Gap 6 (5-15); BUN 24 mg/dL (7-18); BUN/Creat Ratio 20.2 RATIO (10-20); Calcium,Total 8.5 mg/dL (8.5-10.1); Chloride 106 mmol/L (98-107); Creatinine, Serum 1.19 mg/dL (0.55-1.02); EST Glomerular Filtration Rate 47 mL/min (>60); Est Glom Filt Rate - Afr Amer 57 mL/min (>60); Glucose 186 mg/dL (74-106); Potassium 4.4 mmol/L (3.5-5.1); Sodium Level 137 mmol/L (136-145)
[2019-07-29] MEDS: Glucerna Shake 120 ML LIQUID PO ×2 (07:36→11:17)
[2019-07-29 07:56] VITALS: BP 125/62; PULSE 79; RESP 16; TEMP 36.9; O2SAT 92
[2019-07-29] MEDS: Senna/Docusate Sodium 1 Tablet 2 TABLET PO (09:44)
--- NOTE | 2019-07-29 10:45 | CASEMGMT ---
RN CM Face to Face with patient for initial transition planning/care coordination assessment. RN CM introduced self and role at [facility]. Patient sitting in chair, alert and oriented. Patient willing to participate in assessment and is able to answer all questions appropriately. Care providers, pharmacy, and demographics verified. Patient wishes to discharge home and is setup with [facility] for outpatient therapy. Patient states she has no further needs or concerns at this time. CM to follow for discharge planning needs that may arise. PCP: Jane Specialists: Alin Henning Pharmacy: [facility], getting meds filled today at [facility] Retail Insurance: [facility], MMO Prescription Benefit: yes Living Will/HPOA: yes, Mor Adames LNOK: , son, daughter Living Arrangements: Patient lives with in 2 story home with bed on second floor. Patient states she has railing for stairs. Transportation: DME/HHC: Patient has walker, cane, and grab bars. Disposition Plan: Patient to discharge home with outpatient therapy, family support, and follow-up plans in place. Ayaka ADAMS, RN, CM
--- NOTE | 2019-07-29 12:30 | CASEMGMT ---
YOVANI HOLLIS completed SANTIAGO form with patient. RN TELMA explained SANTIAGO form, patient voiced understanding. No questions or concerns at this time. Patient signed SANTIAGO form. Signed copy placed in chart. Patient provided with copy of signed SANTIAGO form.
--- NOTE | 2019-07-29 12:56 | PCM.DC.ORTHO ---
Discharge Diet: No Restrictions Weight Bearing Status: Weight bearing as tolerated Additional Instructions: Ice and elevate next week while not ambulating. Encourage ambulation weightbearing as tolerated. Encourage FULL knee extension and flexion 1 time EVERY time you get up and down and MULTIPLE times per day. Begin showering postop day #3. Remove the dressing prior to shower gently wash with warm water and antibacterial soap then pat dry place ABD pad and JOVAN hose over top. This is to be done daily. do not submerge for 3 weeks. If not showering daily must clean incision and change dressing daily. Do not allow animals near incision keep clean. Follow anticoagulation recommendations. Start physical therapy as directed in the hospital. call Dr. Ogden with any concerns. Allergies/Adverse Reactions: Allergies Sulfa (Sulfonamide Antibiotics) Allergy (Verified 07/28/19 05:54) Unknown Medications to take at Discharge Ascorbic Acid [Vitamin C] 1,000 mg PO DAILY 06/18/18 Aspirin E.C. [Ecotrin] 81 mg PO DAILY 06/18/18 Glipizide [Glipizide ER] 10 mg PO DAILY 06/18/18 Metoprolol Succinate [Toprol Xl] 75 mg PO DAILY 06/18/18 Multivitamins,Therapeutic [Multivitamin] 1 tab PO DAILY 06/18/18 Ramipril [Altace] 10 mg PO DAILY 06/18/18 Saxagliptin HCl/Metformin HCl [Kombiglyze Xr 5-1,000 mg Tab] 1 ea PO DAILY 06/18/18 Thyroid [[place] Thyroid] 60 mg PO QHS 06/18/18 empagliflozin 10 mg tablet 10 mg PO DAILY 06/10/19 Acetaminophen [Tylenol] 1,000 mg PO Q8 #100 tab 07/29/19 Apixaban [Eliquis] 2.5 mg PO BID #28 tab 07/29/19 Oxycodone [Oxyir] 5 - 10 mg PO Q4H PRN PRN #60 tablet 07/29/19 The following prescriptions were given: Apixaban [Eliquis] 2.5 mg PO BID #28 tab Transmission Status: Pending to [facility] Oxycodone [Oxyir] 5 - 10 mg PO Q4H PRN PRN #60 tablet PRN Reason: Pain Score 4-10/10 Transmission Status: Sent to [facility] Acetaminophen [Tylenol] 1,000 mg PO Q8 #100 tab Transmission Status: Pending to [facility] Primary Care Physician: Kentrell Lara MD [Primary Care Provider] - Test Results: Test results from this visit will be discussed in further detail at your follow-up appointment, if applicable. Please Follow Up With: Killian Ogden DO - 2 weeks
--- NOTE | 2019-07-29 12:58 | PCM.DC.SUM ---
Discharge Date and Diagnosis Date of Admission: 07/28/19 Date of Discharge: 07/29/19 Hospital Course and Treatment Summary of Care Provided: The patient is a 74 year old F the patient has with long-standing history of knee DJD and has failed conservative treatment. Patient wished to undergo elective total knee arthroplasty and underwent the aforementioned procedure on the admission date without complications. patient did receive pre-and postoperative antibiotics which were discontinued within 23 hours postoperatively. patient did receive a spinal anesthesia and a adductor canal block and the pain was controlled postoperatively with p.o. and IV pain medication. There was minimal intraoperative blood loss he did receive 2 g of tranexamic acid and his vital signs and labs were stable postoperatively and patient did not require a blood transfusion. patient was seen by physical therapy and did progress with his ambulation. Postoperatively was started on both mechanical and chemical DVT prophylaxis for which patient will continue Eliquis 2.5 mg twice daily for 2 additional weeks post hospital discharge. Patient Bismark wrap was removed in the morning of postop day 1 without any concerning signs. Silverlon dressing will stay on for 72 hours postoperatively at which time patient will begin showering on postop day #3 with daily dressing changes. Encouraged patient to achieve full range of motion as soon as possible, Patient will start outpatient physical therapy and will follow-up in the office in 2 weeks for wound check. There is no intrahospital complications . - Physical Exam Vitals/I&O's: Vital Signs Temp Pulse Resp BP Pulse Ox 98.5 F 79 16 125/62 H 92 07/29/19 07:56 07/29/19 07:56 07/29/19 07:56 07/29/19 07:56 07/29/19 07:56 Oxygen Flow Rate (L/min) 6 Oxygen Delivery Method Room Air Weight: 186 lb 15.232 oz Body Mass Index (BMI) 36.6 Intake and Output for Last 24 Hours 07/27/19 07/28/19 07/29/19 23:59 23:59 23:59 Intake Total 4040.75 / 4040.75 1266.25 / 1266.25 Output Total 2400 / 2400 Balance 4040.75 / 3340.75 -1133.75 / -1133.75 General: Alert, Oriented x3, Cooperative, No apparent distress Extremities: - - Dressing clean dry and intact compartment soft neurovascular intact Laboratory Results 07/29/19 05:58: WBC 10.3, RBC 4.29, Hgb 13.5, Hct 40.3, MCV 93.9, MCH 31.5, MCHC 33.5, RDW Std Deviation 42.5, RDW Coeff of Anthony 12.3, Plt Count 254, MPV 10.1 07/29/19 05:58: Sodium 137, Potassium 4.4, Chloride 106, Carbon Dioxide 25.0, Anion Gap 6, BUN 24 H, Creatinine 1.19 H, Estim Creat Clear Calc 31.30, Est GFR (MDRD) Af Amer 57 L, Est GFR (MDRD) Non-Af 47 L, BUN/Creatinine Ratio 20.2 H, Glucose 186 H, Calcium 8.5 Current Medications Acetaminophen (Tylenol) 1,000 mg PO Q8 [facility] Last Admin: 07/29/19 05:37 Dose: 1,000 mg Documented by: Apixaban (Eliquis) 2.5 mg PO BID [facility] Last Admin: 07/29/19 06:00 Dose: 2.5 mg Documented by: Hydromorphone HCl (Dilaudid Inj) 0.5 mg IV Q2H PRN PRN PRN Reason: Pain Score 6-10/10 Cefazolin Sodium () 1 gm in 50 mls @ 100 mls/hr IV Q8H [facility] Last Infusion: 07/29/19 10:29 Dose: Infused Documented by: Insulin Human Lispro (Humalog Kwikpen (Bkc)) 1 - 6 unit SC Q4H PRN PRN; Protocol PRN Reason: BG>/= 180, SEE PROTOCOL Ketorolac Tromethamine (Toradol) 15 mg IV Q6H PRN PRN PRN Reason: Pain Score 1-5/10 Stop: 07/30/19 09:25 Nutritional Formula (Lactose Free) (Glucerna Shake) 120 ml PO TIDCM [facility] Last Admin: 07/29/19 11:17 Dose: 120 ml Documented by: Ondansetron HCl (Zofran) 4 mg IV Q6H PRN PRN PRN Reason: NAUSEA Oxycodone HCl (Oxyir) 5 - 10 mg PO Q4H PRN PRN PRN Reason: Pain Score 4-10/10 Senna/Docusate Sodium (Senokot-S, Phoebe-Colace) 2 tablet PO BID REN Last Admin: 07/29/19 09:44 Dose: 2 tablet Documented by: Sodium Chloride () 10 - 40 ml IV UD PRN PRN Reason: SALINE FLUSH Discharge Diet: No Restrictions Weight Bearing Status: Weight bearing as tolerated Home Medications: Medications to take at Discharge Ascorbic Acid [Vitamin C] 1,000 mg PO DAILY 06/18/18 Aspirin E.C. [Ecotrin] 81 mg PO DAILY 06/18/18 Glipizide [Glipizide ER] 10 mg PO DAILY 06/18/18 Metoprolol Succinate [Toprol Xl] 75 mg PO DAILY 06/18/18 Multivitamins,Therapeutic [Multivitamin] 1 tab PO DAILY 06/18/18 Ramipril [Altace] 10 mg PO DAILY 06/18/18 Saxagliptin HCl/Metformin HCl [Kombiglyze Xr 5-1,000 mg Tab] 1 ea PO DAILY 06/18/18 Thyroid [Meta Thyroid] 60 mg PO QHS 06/18/18 empagliflozin 10 mg tablet 10 mg PO DAILY 06/10/19 Acetaminophen [Tylenol] 1,000 mg PO Q8 #100 tab 07/29/19 Apixaban [Eliquis] 2.5 mg PO BID #28 tab 07/29/19 Oxycodone [Oxyir] 5 - 10 mg PO Q4H PRN PRN #60 tablet 07/29/19 Following Prescrptions Were Given to Patient: Apixaban [Eliquis] 2.5 mg PO BID #28 tab Transmission Status: Pending to [facility] Oxycodone [Oxyir] 5 - 10 mg PO Q4H PRN PRN #60 tablet PRN Reason: Pain Score 4-10/10 Transmission Status: Sent to [facility] Acetaminophen [Tylenol] 1,000 mg PO Q8 #100 tab Transmission Status: Pending to [facility] Primary Care Physician: Kentrell Lara MD [Primary Care Provider] - Please Follow Up With: Killian Ogden DO - 2 weeks Additional Instructions: Ice and elevate next week while not ambulating. Encourage ambulation weightbearing as tolerated. Encourage FULL knee extension and flexion 1 time EVERY time you get up and down and MULTIPLE times per day. Begin showering postop day #3. Remove the dressing prior to shower gently wash with warm water and antibacterial soap then pat dry place ABD pad and JOVAN hose over top. This is to be done daily. do not submerge for 3 weeks. If not showering daily must clean incision and change dressing daily. Do not allow animals near incision keep clean. Follow anticoagulation recommendations. Start physical therapy as directed in the hospital. call Dr. Ogden with any concerns. Medical Necessity - Tobacco Use Smoking Status: Never smoker Tobacco Use: Non-smoker Meaningful Use Info Meaningful Use Diagnoses (Choose all that apply): None applicable
[2019-07-29 13:48] VITALS: BP 159/76; PULSE 92; RESP 18; TEMP 36.7; O2SAT 93
== END 2019-07-29 14:00 | disposition home or self-care (01) ==
LOC: SDC 09:43 → MS3 09:43
PROVIDERS: Admitting Provider Orthopaedic Surgery; Family Provider Family Medicine; PCP Family Medicine; Referring Provider Orthopaedic Surgery; Visit Provider Orthopaedic Surgery
PROC: (CPT 27447; principal; 2019-07-28 07:20)
DX: M17.12 Unilateral primary osteoarthritis, left knee (principal); E11.9 Type 2 diabetes mellitus without complications; I10 Essential (primary) hypertension; E07.9 Disorder of thyroid, unspecified; Z85.72 Personal history of non-Hodgkin lymphomas; Z79.899 Other long term (current) drug therapy; Z79.84 Long term (current) use of oral hypoglycemic drugs; Z79.82 Long term (current) use of aspirin
CPT/HCPCS: 01400; 27447; 64447; 36415; 73560; 80048; 82962; 85027; 87081; 93005; 96361; 96365; 96366; 97110; 97116; 97162; 97166; 97530; 97535; 97802; 99218; 99251; C1776; J7120; G0378; G0379; G0463; J0702; J3490

== ENCOUNTER 2019-09-08 05:49 | Day surgery (SDC) | payer MEDICARE, OTHER, SELFPAY ==
[2019-09-07 09:17] VITALS: BMI 36.6
--- NOTE | 2019-09-07 10:03 | HP_ITS ---
Intake Intake Visit Reasons: LEFT KNEE Accompanied by: Is patient in pain?: No Allergies Sulfa (Sulfonamide Antibiotics) Allergy (Verified 07/28/19 05:54) Unknown Medications Ascorbic Acid [Vitamin C] 1,000 mg PO DAILY 06/18/18 [History Confirmed 09/07/19] Aspirin E.C. [Ecotrin] 81 mg PO DAILY 06/18/18 [History Confirmed 09/07/19] Glipizide [Glipizide ER] 10 mg PO DAILY 06/18/18 [History Confirmed 09/07/19] Metoprolol Succinate [Toprol Xl] 75 mg PO DAILY 06/18/18 [History Confirmed 09/07/19] Multivitamins,Therapeutic [Multivitamin] 1 tab PO DAILY 06/18/18 [History Confirmed 09/07/19] Ramipril [Altace] 10 mg PO DAILY 06/18/18 [History Confirmed 09/07/19] Saxagliptin HCl/Metformin HCl [Kombiglyze Xr 5-1,000 mg Tab] 1 ea PO DAILY 06/18/18 [History Confirmed 09/07/19] Thyroid [[place] Thyroid] 60 mg PO QHS 06/18/18 [History Confirmed 09/07/19] empagliflozin 10 mg tablet 10 mg PO DAILY 06/10/19 [History Confirmed 09/07/19] Acetaminophen [Tylenol] 1,000 mg PO Q8 #100 tab 07/29/19 [Rx Confirmed 09/07/19] Oxycodone [Oxyir] 5 - 10 mg PO Q4H PRN PRN #60 tab 07/29/19 [Rx Confirmed 09/07/19] PFSH Medical History (Updated 07/28/19 @ 07:[address] Killian Ogden DO) Diabetes mellitus (Acute) HTN (hypertension) (Chronic) Social History (Updated 09/07/19 @ 10:[address] Killian Ogden DO) Smoking Status: Never smoker HPI LEFT KNEE: Surgical H&P: Yes Details: Parts of this documentation were recorded by a scribe, this documentation accurately reflects the service provided and the decisions made by Killian heck DO 09/07/19 0755. MAIA ERICKSON is a 74 year old F here today for 6 week post op from left TKA. Patient is taking some with full extension and she is just past 90 with flexion. Denies numbness, tingling or other associated symptoms. Does have some muscle pain and soreness. Patient has only taken 1 postoperative narcotic pill ROS Const Denies headache(s) ENT Denies headache(s) Musc Reports joint pain, Reports limited joint movement, Reports stiffness Skin/Breast Reports system reviewed and no additional complaints, except as docu Neuro No headache(s) Ortho Exam Left Knee Skin/Wound: No ecchymosis, No erythema, No swelling Homans Sign: No Knee ROM: Yes ROM-Extension -20 to 0 (8), No ROM-Flexion 0-140 (100) Assessment & Plan Problems 1. Orthopedic aftercare Z47.89 Plan Patient educated that d/t her stiffness it is recommended that she has a manipulation under anesthesia to improve her flexion and extension. Educated that this procedure breaks up the scar tissue. She will then have to continue with PT to keep her ROM. Patient wishes to proceed with manipulation and signed consent today. Encouraged to take pain medication prior to PT to aid in prevention of pain. Follow up 4 weeks from manipulation or sooner if pain, swelling, numbness or associated symptoms, or concerns develop. All questions answered. Patient in agreement of plan. Coding Level of Care Code Global Post Op Diagnoses Orthopedic aftercare Z47.89 09/07/19 1004 <Electronically signed by Killian pimentel DO> Date _ Killian Ogden DO
--- NOTE | 2019-09-07 15:04 | HP.PCM_ITS ---
History and Physical Date of Admission: 09/08/19 Intake Intake Visit Reasons: LEFT KNEE Accompanied by: Is patient in pain?: No Allergies Sulfa (Sulfonamide Antibiotics) Allergy (Verified 07/28/19 05:54) Unknown Medications Ascorbic Acid [Vitamin C] 1,000 mg PO DAILY 06/18/18 [History Confirmed 09/07/19] Aspirin E.C. [Ecotrin] 81 mg PO DAILY 06/18/18 [History Confirmed 09/07/19] Glipizide [Glipizide ER] 10 mg PO DAILY 06/18/18 [History Confirmed 09/07/19] Metoprolol Succinate [Toprol Xl] 75 mg PO DAILY 06/18/18 [History Confirmed 09/07/19] Multivitamins,Therapeutic [Multivitamin] 1 tab PO DAILY 06/18/18 [History Confirmed 09/07/19] Ramipril [Altace] 10 mg PO DAILY 06/18/18 [History Confirmed 09/07/19] Saxagliptin HCl/Metformin HCl [Kombiglyze Xr 5-1,000 mg Tab] 1 ea PO DAILY 06/18/18 [History Confirmed 09/07/19] Thyroid [[place] Thyroid] 60 mg PO QHS 06/18/18 [History Confirmed 09/07/19] empagliflozin 10 mg tablet 10 mg PO DAILY 06/10/19 [History Confirmed 09/07/19] Acetaminophen [Tylenol] 1,000 mg PO Q8 #100 tab 07/29/19 [Rx Confirmed 09/07/19] Oxycodone [Oxyir] 5 - 10 mg PO Q4H PRN PRN #60 tab 07/29/19 [Rx Confirmed 09/07/19] PFSH Medical History (Updated 07/28/19 @ 07:[address] Killian Ogden DO) Diabetes mellitus (Acute) HTN (hypertension) (Chronic) Social History (Updated 09/07/19 @ 10:[address] Killian Ogden DO) Smoking Status: Never smoker HPI LEFT KNEE: Surgical H&P: Yes Details: Parts of this documentation were recorded by a scribe, this documentation accurately reflects the service provided and the decisions made by Killian heck DO 09/07/19 0755. MAIA ERICKSON is a 74 year old F here today for 6 week post op from left TKA. Patient is taking some with full extension and she is just past 90 with flexion. Denies numbness, tingling or other associated symptoms. Does have some muscle pain and soreness. Patient has only taken 1 postoperative narcotic pill ROS Const Denies headache(s) ENT Denies headache(s) Musc Reports joint pain, Reports limited joint movement, Reports stiffness Skin/Breast Reports system reviewed and no additional complaints, except as docu Neuro No headache(s) Ortho Exam Left Knee Skin/Wound: No ecchymosis, No erythema, No swelling Homans Sign: No Knee ROM: Yes ROM-Extension -20 to 0 (8), No ROM-Flexion 0-140 (100) Assessment & Plan Problems 1. Orthopedic aftercare Z47.89 Plan Patient educated that d/t her stiffness it is recommended that she has a manipulation under anesthesia to improve her flexion and extension. Educated that this procedure breaks up the scar tissue. She will then have to continue with PT to keep her ROM. Patient wishes to proceed with manipulation and signed consent today. Encouraged to take pain medication prior to PT to aid in prevention of pain. Follow up 4 weeks from manipulation or sooner if pain, swelling, numbness or associated symptoms, or concerns develop. All questions answered. Patient in agreement of plan. Coding Level of Care Code Global Post Op Diagnoses Orthopedic aftercare Z47.89 I have re-examined the patient. There are no clinical changes since date of exam
[2019-09-08 06:10] VITALS: BP 139/69; PULSE 87; RESP 16; TEMP 36.5; O2SAT 94; BMI 34.0
[2019-09-08] MEDS: Lactated Ringers 1,000 ML 100 ML IV (06:19)
[2019-09-08 06:35] LABS: Bedside Glucose 157 mg/dL (70-110)
--- NOTE | 2019-09-08 07:36 | DCINST_ITS ---
Discharge Diet: No Restrictions Weight Bearing Status: Weight bearing as tolerated Call your doctor if you observe: Fever of 101 or Higher, Shortness of breath, Chest pain Additional Instructions: Weightbearing as tolerated. Encourage full knee extension and flexion immediately. Resume physical therapy immediately. Pain medication as prescribed. May shower. Call with any concerns. Allergies/Adverse Reactions: Allergies Sulfa (Sulfonamide Antibiotics) Allergy (Verified 09/08/19 06:08) Unknown Medications to take at Discharge Ascorbic Acid [Vitamin C] 1,000 mg PO DAILY 06/18/18 Aspirin E.C. [Ecotrin] 81 mg PO DAILY 06/18/18 Glipizide [Glipizide ER] 10 mg PO DAILY 06/18/18 Metoprolol Succinate [Toprol Xl] 75 mg PO DAILY 06/18/18 Multivitamins,Therapeutic [Multivitamin] 1 tab PO DAILY 06/18/18 Ramipril [Altace] 10 mg PO DAILY 06/18/18 Saxagliptin HCl/Metformin HCl [Kombiglyze Xr 5-1,000 mg Tab] 1 ea PO DAILY 06/18/18 Thyroid [[place] Thyroid] 60 mg PO QHS 06/18/18 empagliflozin 10 mg tablet 10 mg PO DAILY 06/10/19 Primary Care Physician: Kentrell Lara MD [Primary Care Provider] - Test Results: Test results from this visit will be discussed in further detail at your follow- up appointment, if applicable. Please Follow Up With: Killian Ogden DO - 4 weeks
--- NOTE | 2019-09-08 07:36 | OP.PCM_ITS ---
Report of Operation Date of Procedure: 09/08/19 Description of Surgical Findings:: Preoperative diagnosis: Arthrofibrosis left knee Postoperative diagnosis: Same Procedure: Manipulation under anesthesia with intra-articular steroid injection Anesthesia: General EBL: None Complications: None Condition: Able to PACU Indication for procedure: This is a 74-year-old female who underwent total knee arthroplasty approximately 6 weeks ago who is failed to gain her range of motion wish to undergo an elective manipulation under anesthesia to increase range of motion. risk benefits and alternatives were reviewed including risk of bleeding infection nerve, artery, bone, tissue damage, blood clot need for further jeanne leno and continued pain. Procedure: Patient was met in the preoperative holding area once again the operative extremity was identified by both patient and physician and was marked. Patient was brought back to the operating room anesthesia was started. A timeout was called into the proper patient procedure and extremity were being contemplated. The operative range of motion was 3 extension and achieving 90 degrees flexion. After patient was adequately anesthetized extension manipulation was performed followed by patellar mobilization followed by gradual flexion scar tissue was palpated being released with no concerning signs for tendon rupture or fracture. Postoperative range of motion was much improved with near full extension and 125 degrees of flexion. Following the manipulation using sterile technique from the superior lateral position an intra-articular injection with 40 mg of depomedrol and 8 cc 0.25%marcaine with epi was injected. bandaid applied
[2019-09-08] MEDS: Cefazolin 2 GM in 0.9% Normal Saline 100 ML IV (07:38)
[2019-09-08] MEDS: Bupiv/Epi 0.25% 30 ML Vial (07:46)
[2019-09-08] MEDS: MethylPREDNISolone Acetate 80 MG/ML Vial (07:46)
[2019-09-08 07:54] VITALS: BP 110/49; BP 139/69; PULSE 78; RESP 14; TEMP 36.4; O2SAT 92
[2019-09-08 08:00] VITALS: BP 110/48; BP 139/69; PULSE 78; RESP 16; O2SAT 94
[2019-09-08 08:14] VITALS: BP 130/67; BP 139/69; PULSE 77; RESP 14; O2SAT 99
[2019-09-08 08:20] VITALS: BP 139/69; BP 142/68; PULSE 77; RESP 16; TEMP 36.4; O2SAT 96
[2019-09-08 08:26] LABS: Bedside Glucose 159 mg/dL (70-110)
[2019-09-08 08:49] VITALS: BP 139/69
== END 2019-09-08 08:55 | disposition home or self-care (01) ==
LOC: SDC 05:49 → AC 05:53
PROVIDERS: PCP Family Medicine; Referring Provider Orthopaedic Surgery; Visit Provider Orthopaedic Surgery
PROC: (CPT 27570; principal; 2019-09-08 07:25)
DX: M24.662 Ankylosis, left knee (principal); E11.9 Type 2 diabetes mellitus without complications; I10 Essential (primary) hypertension; Z78.0 Asymptomatic menopausal state; Z79.899 Other long term (current) drug therapy; Z79.84 Long term (current) use of oral hypoglycemic drugs; Z79.82 Long term (current) use of aspirin; Z88.2 Allergy status to sulfonamides; Z85.72 Personal history of non-Hodgkin lymphomas; Z96.652 Presence of left artificial knee joint
CPT/HCPCS: 01380; 20610; 27570; 82962; J7120

== ENCOUNTER 2019-10-15 10:30 | Outpatient (RCR) | payer MEDICARE, OTHER, SELFPAY ==
[2019-06-10 13:00] VITALS: BMI 36.6
[2019-07-28 12:17] VITALS: BMI 36.6
--- NOTE | 2019-07-30 11:53 | HP.PTEVAL_ITS ---
Patient's Visit Information MAIA ERICKSON is a 74 year old F referred to Physical Therapy by Killian Ogden DO with a diagnosis of L TKA. Date of Evaluation: 07/30/19 Physical Therapist: Sg Lemos PT, ATC - Visit Plan Frequency: 2-3x /Week Duration: 6 Weeks Plan: L knee PROM/Mobs, stretching and strengthening, balance and proprio, core strengthening, nustep, and HEP - Subjective Findings: DOS: 07/28/19. Pt reports she had chronic L knee pain for several years prior to having her L TKA. Pt reports she is very sore and stiff today. Pt notes she is taking some pain meds for Rx today, but has to limit how much she takes secondary to not being able to sleep at night. Pt reports she has been performing HEP of stretching at home. Pt reports no sleep difficulty secondary to pain. No tingling or numbness in L LE at this time. Pt reports she lives in a 2 story house and has to negotiate stairs daily. Pt negotiates stairs one at a time. 4/10 pain at rest, 9/10 pain at worst. - Pain L knee TKA Pain Intensity (Out of 10): 4 Pain Intensity Range: 9 - Objective Neuro: B LE sensation is WNL to light touch. B achilles reflex 1/3. Girth at joint line: R knee 36 cm, L knee 40 cm. Observation: Mild redness and warmth noted. Incision covered by pad. No obvious signs of infection. MMT: R LE 5/5 throughout. L knee 3-/5 and painful. ROM: R knee 0-14-110 degrees. L knee 0-16-84 degrees - Goals Goal 1:: Increase R LE strength x 1 grade to aid with stair negotiation Goal Time Frame: 4-6 Weeks Goal 2:: Increase R knee ROM x 20 degrees to aid with stair negotiation Goal Time Frame: 4-6 Weeks Goal 3:: Decrease L knee pain x 50% to aid with increasing tolerance for ambulation Goal Time Frame: 4-6 Weeks Goal 4:: I with HEP Goal Time Frame: 4-6 Weeks - Rehabilitation Potential Physical Therapy Diagnosis: L knee pain, weakness, and limited ROM secondary to L TKA Rehabilitation Potential: Good - Anticipated Interventions Patient/Client Instruction: Educate patient on: Condition, Plan of Care For the Purpose of:: To improve self management Therapeutic Exercise to Include: Strength training, Endurance training, Balance training, Flexibilty training, Gait and locomotor training, Passive ROM, Active ROM, Dynamic Lumbar Stabilization For the Purpose of:: To decrease pain, To increase ROM, To improve muscle performance and motor function Cryotherapy (ice pack, ice massage): Yes For the Purpose of:: To decrease pain Thank you for the opportunity to evaluate your patient. For Medicare and Medicare HMO plans, please review the plan of care and approve it. It will need to be FAXED BACK to us at [phone] for Medicare purposes. For Medicare only, by signing this I certify the plan of care. Please let me know if there are questions or concerns regarding this plan of care. Physician Signature: Date:
--- NOTE | 2019-09-02 10:56 | HP.PTREVAL ---
Killian Ogden, DO, It has been my pleasure to treat MAIA ERICKSON over the last 14 visits for L TKA. Please see the progress note below for an update on the physical therapy plan of care! Subjective: Mild pain this date Objective/Function: L knee pain ranges from 1-3/10. L knee ROM: 0-12-93. L knee MMT: 4/5 throughout Plan Plan: L knee PROM/Mobs, stretching and strengthening, balance and proprio, core strengthening, nustep, and HEP Goals Goal 1:: Increase R LE strength x 1 grade to aid with stair negotiation Goal Time Frame: 4-6 Weeks Goal Progress: Progressing Goal 2:: Increase R knee ROM x 20 degrees to aid with stair negotiation Goal Time Frame: 4-6 Weeks Goal Progress: Progressing Goal 3:: Decrease L knee pain x 50% to aid with increasing tolerance for ambulation Goal Time Frame: 4-6 Weeks Goal Progress: Progressing Goal 4:: I with HEP Goal Time Frame: 4-6 Weeks Goal Progress: Progressing Anticipated Interventions Patient/Client Instruction: Educate patient on: Condition, Plan of Care For the Purpose of:: To improve self management Therapeutic Exercise to Include: Strength training, Endurance training, Balance training, Flexibilty training, Gait and locomotor training, Passive ROM, Active ROM, Dynamic Lumbar Stabilization For the Purpose of:: To decrease pain, To increase ROM, To improve muscle performance and motor function Cryotherapy (ice pack, ice massage): Yes For the Purpose of:: To decrease pain Please do not hesitate to contact me at [phone] by phone or if you have questions or concerns regarding this new plan of care! Sincerely, Sg Lemos, PT, ATC
--- NOTE | 2019-10-02 10:05 | HP.PTDCSUM ---
It has been my pleasure to treat MAIA ERICKSON referred by Killian Ogden DO, with the diagnosis of L TKA for a total of 26 visit(s). Discharge Date: Please see the following information for a summary of their discharge status. Subjective: Pt to see doctor tomorrow L knee TKA Pain Intensity (Out of 10): 1 % Improvement: 75 Objective/Function: L knee pain /. L knee ROM: 0-8-122 degrees. L knee MMT: 5/5 throughout. I with HEP. Rx goals achieved Goal 1:: Increase R LE strength x 1 grade to aid with stair negotiation Goal Progress: Progressing Goal 2:: Increase R knee ROM x 20 degrees to aid with stair negotiation Goal Progress: Progressing Goal 3:: Decrease L knee pain x 50% to aid with increasing tolerance for ambulation Goal Progress: Progressing Goal 4:: I with HEP Goal Progress: Progressing Plan: Discharge If there are questions or concerns regarding this patient's physical therapy, please feel free to call me at [phone]. Thank you for the referral of this patient. Sincerely, Sg Lemos, PT, ATC
--- NOTE | 2019-10-15 11:06 | HP.PTDCSUM ---
It has been my pleasure to treat MAIA ERICKSON referred by Killian Ogden DO, with the diagnosis of L TKA for a total of 30 visit(s). Discharge Date: Please see the following information for a summary of their discharge status. Subjective: Pt reports she is stiff today L knee TKA Pain Intensity (Out of 10): 1 % Improvement: 90 Objective/Function: 0/10 pain this date. 5/5 strength throughout. L knee ROM: 0-10-123. I with HEP. Rx goals achieved Goal 1:: Increase R LE strength x 1 grade to aid with stair negotiation Goal Progress: Goal Met Goal 2:: Increase R knee ROM x 20 degrees to aid with stair negotiation Goal Progress: Goal Met Goal 3:: Decrease L knee pain x 50% to aid with increasing tolerance for ambulation Goal Progress: Goal Met Goal 4:: I with HEP Goal Progress: Goal Met Plan: Discharge If there are questions or concerns regarding this patient's physical therapy, please feel free to call me at [phone]. Thank you for the referral of this patient. Sincerely, Sg Lemos, PT, ATC
== END 2019-10-15 19:00 | disposition home or self-care (01) ==
LOC: PT 10:30
PROVIDERS: Family Provider Family Medicine; PCP Family Medicine; Referring Provider Orthopaedic Surgery; Visit Provider Orthopaedic Surgery
DX: Z47.1 Aftercare following joint replacement surgery (principal); Z96.652 Presence of left artificial knee joint
CPT/HCPCS: 97110; 97140; 97161; 97164

== ENCOUNTER → 2019-11-23 15:40 | Outpatient (CLI) | payer MEDICARE, OTHER, SELFPAY ==
[2019-10-05 09:07] VITALS: BMI 34.0
[2019-11-23 18:40] LABS: Anion Gap 7 (5-15); BUN 20 mg/dL (7-18); BUN/Creat Ratio 22.7 RATIO (10-20); Chloride 105 mmol/L (98-107); Creatinine, Serum 0.88 mg/dL (0.55-1.02); EST Glomerular Filtration Rate 67 mL/min (>60); Est Glom Filt Rate - Afr Amer 81 mL/min (>60); Glucose 161 mg/dL (74-106); Potassium 4.5 mmol/L (3.5-5.1); Sodium Level 140 mmol/L (136-145); Thyroid Stim Hormone (TSH) 0.43 uIU/mL (0.358-3.74)
== END ==
PROVIDERS: PCP Family Medicine; Visit Provider Family Medicine
DX: I10 Essential (primary) hypertension (principal); E03.9 Hypothyroidism, unspecified
CPT/HCPCS: 36415; 80048; 84443

== ENCOUNTER → 2020-08-22 07:26 | Outpatient (CLI) | payer MEDICARE, OTHER, SELFPAY ==
[2019-10-05 09:07] VITALS: BMI 34.0
[2020-08-22 10:27] LABS: ALB/GLOB Ratio 1.4 RATIO (0.9-2.4); AST(SGOT) 13 U/L (15-37); Alanine Aminotransfer ALT/SGPT 20 U/L (13-56); Albumin, Serum 3.5 g/dL (3.2-5.0); Alkaline Phosphatase 63 U/L (45-117); Anion Gap 8 (5-15); BUN 20 mg/dL (7-18); BUN/Creat Ratio 22.8 RATIO (10-20); Calcium,Total 9.5 mg/dL (8.5-10.1); Chloride 107 mmol/L (98-107); Cholesterol 292 mg/dL (200); Creatinine, Serum 0.88 mg/dL (0.55-1.02); EST Glomerular Filtration Rate 67 mL/min (>60); Est Glom Filt Rate - Afr Amer 81 mL/min (>60); Globulin 2.5 g/dL (2.2-4.2); Glucose 145 mg/dL (74-106); High Density Lipoprotein 56 mg/dL; Potassium 4.4 mmol/L (3.5-5.1); Sodium Level 142 mmol/L (136-145); Thyroid Stim Hormone (TSH) 1.01 uIU/mL (0.358-3.74); Triglycerides 171 mg/dL; Very Low Density Lipoprotein 34 mg/dL (5-40)
== END ==
PROVIDERS: PCP Family Medicine; Referring Provider Family Medicine; Visit Provider Family Medicine
DX: E11.9 Type 2 diabetes mellitus without complications (principal)
CPT/HCPCS: 36415; 80053; 80061; 84443

== ENCOUNTER 2021-10-05 07:15 | Outpatient (CLI) | payer MEDICARE, OTHER, SELFPAY ==
[2021-10-05 10:53] LABS: ALB/GLOB Ratio 1.2 RATIO (0.9-2.4); AST(SGOT) 9 U/L (15-37); Alanine Aminotransfer ALT/SGPT 23 U/L (13-56); Albumin, Serum 3.4 g/dL (3.2-5.0); Alkaline Phosphatase 58 U/L (45-117); Anion Gap 7 (5-15); BUN 18 mg/dL (7-18); BUN/Creat Ratio 22.2 RATIO (10-20); Calcium,Total 8.6 mg/dL (8.5-10.1); Chloride 104 mmol/L (98-107); Cholesterol 300 mg/dL (200); Creatinine, Serum 0.81 mg/dL (0.55-1.02); EST Glomerular Filtration Rate 73 mL/min (>60); Est Glom Filt Rate - Afr Amer 88 mL/min (>60); Globulin 2.8 g/dL (2.2-4.2); Glucose 149 mg/dL (74-106); High Density Lipoprotein 51 mg/dL; Potassium 4.1 mmol/L (3.5-5.1); Protein, Total 6.2 g/dL (6.4-8.2); Sodium Level 139 mmol/L (136-145); Thyroid Stim Hormone (TSH) 0.73 uIU/mL (0.358-3.74); Triglycerides 171 mg/dL; Very Low Density Lipoprotein 34 mg/dL (5-40)
== END 2021-10-05 23:59 | disposition home or self-care (01) ==
LOC: MTLAB 07:31
PROVIDERS: PCP Family Medicine; Referring Provider Family Medicine; Visit Provider Family Medicine
DX: E11.65 Type 2 diabetes mellitus with hyperglycemia (principal)
CPT/HCPCS: 36415; 80053; 80061; 84443

== ENCOUNTER → 2022-09-13 | Outpatient (CLI) | payer MEDICARE, OTHER, SELFPAY ==
[2022-09-13 10:35] LABS: ALB/GLOB Ratio 1.2 RATIO (0.9-2.4); AST(SGOT) 16 U/L (15-37); Alanine Aminotransfer ALT/SGPT 23 U/L (13-56); Albumin, Serum 3.3 g/dL (3.2-5.0); Alkaline Phosphatase 50 U/L (45-117); Anion Gap 8 (5-15); BUN 20 mg/dL (7-18); BUN/Creat Ratio 22.5 RATIO (10-20); Calcium,Total 9.1 mg/dL (8.5-10.1); Chloride 105 mmol/L (98-107); Cholesterol 263 mg/dL (200); Creatinine, Serum 0.89 mg/dL (0.55-1.02); EST Glomerular Filtration Rate 65 mL/min (>60); Est Glom Filt Rate - Afr Amer 79 mL/min (>60); Globulin 2.8 g/dL (2.2-4.2); Glucose 169 mg/dL (74-106); High Density Lipoprotein 59 mg/dL; Potassium 4.4 mmol/L (3.5-5.1); Protein, Total 6.1 g/dL (6.4-8.2); Sodium Level 139 mmol/L (136-145); Triglycerides 90 mg/dL; Very Low Density Lipoprotein 18 mg/dL (5-40)
== END | disposition home or self-care (01) ==
LOC: MTLAB 08:01
PROVIDERS: PCP Family Medicine; Referring Provider Family Medicine; Visit Provider Family Medicine
DX: E03.9 Hypothyroidism, unspecified (principal)
CPT/HCPCS: 36415; 80053; 80061; 84443

== ENCOUNTER → 2023-07-31 | Outpatient (CLI) | payer MEDICARE, OTHER, SELFPAY ==
[2023-07-31 12:08] LABS: ALB/GLOB Ratio 1.3 RATIO (0.9-2.4); AST(SGOT) 16 U/L (15-37); Alanine Aminotransfer ALT/SGPT 19 U/L (13-56); Albumin, Serum 3.4 g/dL (3.2-5.0); Alkaline Phosphatase 52 U/L (45-117); Anion Gap 7 (5-15); BUN 19 mg/dL (7-18); BUN/Creat Ratio 24.1 RATIO (10-20); Calcium,Total 9.6 mg/dL (8.5-10.1); Chloride 106 mmol/L (98-107); Cholesterol 280 mg/dL (200); Creatinine, Serum 0.79 mg/dL (0.55-1.02); EST Glomerular Filtration Rate 75 mL/min (>60); Est Glom Filt Rate - Afr Amer 91 mL/min (>60); Globulin 2.7 g/dL (2.2-4.2); Glucose 152 mg/dL (74-106); High Density Lipoprotein 55 mg/dL; Potassium 4.3 mmol/L (3.5-5.1); Protein, Total 6.1 g/dL (6.4-8.2); Sodium Level 137 mmol/L (136-145); Thyroid Stim Hormone (TSH) 1.03 uIU/mL (0.358-3.74); Triglycerides 183 mg/dL; Very Low Density Lipoprotein 37 mg/dL (5-40)
== END | disposition home or self-care (01) ==
PROVIDERS: PCP Family Medicine; Referring Provider Family Medicine; Visit Provider Family Medicine
DX: E11.65 Type 2 diabetes mellitus with hyperglycemia (principal); E03.9 Hypothyroidism, unspecified
CPT/HCPCS: 36415; 80053; 80061; 84443

== ENCOUNTER → 2024-05-11 | Outpatient (CLI) | payer MEDICARE, OTHER, SELFPAY ==
[2024-05-11 10:38] LABS: ALB/GLOB Ratio 1.3 RATIO (0.9-2.4); AST(SGOT) 11 U/L (15-37); Alanine Aminotransfer ALT/SGPT 18 U/L (13-56); Albumin, Serum 3.4 g/dL (3.2-5.0); Alkaline Phosphatase 56 U/L (45-117); Anion Gap 6 (5-15); BUN 20 mg/dL (7-18); BUN/Creat Ratio 25.1 RATIO (10-20); Calcium,Total 8.6 mg/dL (8.5-10.1); Chloride 105 mmol/L (98-107); Cholesterol 276 mg/dL (200); EST Glomerular Filtration Rate 74 mL/min (>60); Est Glom Filt Rate - Afr Amer 89 mL/min (>60); Globulin 2.6 g/dL (2.2-4.2); Glucose 154 mg/dL (74-106); High Density Lipoprotein 63 mg/dL; Potassium 4.3 mmol/L (3.5-5.1); Sodium Level 139 mmol/L (136-145); Thyroid Stim Hormone (TSH) 0.578 uIU/mL (0.358-3.740); Triglycerides 96 mg/dL; Very Low Density Lipoprotein 19 mg/dL (5-40)
== END | disposition home or self-care (01) ==
PROVIDERS: PCP Family Medicine; Referring Provider Family Medicine; Visit Provider Family Medicine
DX: E11.69 Type 2 diabetes mellitus with other specified complication (principal); E03.9 Hypothyroidism, unspecified
CPT/HCPCS: 36415; 80053; 80061; 84443